=== PATIENT | female | born 1995 | race Caucasian/White ===

== ENCOUNTER 2017-09-09 23:11 | Emergency (ER) | payer MEDICAID ==
--- NOTE | 2017-09-10 00:35 | ER Document Report ---
ED General - General Chief Complaint: Knee Pain Stated Complaint: LEFT KNEE PAIN Time Seen by Provider: 09/10/17 00:02 Notes: Patient is a 3-year-old female presents with complaint of left knee pain. She has a history of patellofemoral syndrome of the knee. She says she is 2 days ago she fell and banged her knee against something. She denies bruising or swelling some pain in her knee. No pain or ankle foot. Normal distal sensation. She denies any other injuries. No other complaints at this time. She does have a knee brace that she has been wearing. She is able to ambulate but says she has some pain in doing so. TRAVEL OUTSIDE OF THE [place] IN LAST 30 DAYS: No - Related Data Allergies/Adverse Reactions: No Known Allergies Allergy (Unverified 09/09/17 23:26) Past Medical History - Social History Smoking Status: Never Smoker Frequency of alcohol use: None Drug Abuse: None Family History: Reviewed & Not Pertinent Patient has suicidal ideation: No Patient has homicidal ideation: No Renal/ Medical History: Denies: Hx Peritoneal Dialysis Surgical Hx: Negative Review of Systems - Review of Systems Notes: My Normal Review Basic REVIEW OF SYSTEMS: CONSTITUTIONAL : Denies fever, chills, or sweats. Denies recent illness. MUSCULOSKELETAL: Left knee pain SKIN: Denies rash or skin lesions. NEUROLOGICAL: Denies sensory or motor loss. ALL OTHER SYSTEMS REVIEWED AND NEGATIVE. Physical Exam - Vital signs Vitals: Temp Pulse Resp BP Pulse Ox 98.1 F 81 18 130/57 H 97 09/09/17 23:21 09/09/17 23:21 09/09/17 23:21 09/09/17 23:21 09/09/17 23:21 - Notes Notes: General Appearance: Well nourished, alert, cooperative, no acute distress, mild obvious discomfort. Vitals: reviewed, See vital signs table. Extremities: strength 5/5 in all extremities, good pulses in all extremities, patient is a small amount swelling on the left knee. Spinal bruising. Patient is able to keep the left leg in full extension raise it off the bed without difficulty. No crepitance to palpation. Patient has some pain to palpation just inferior to the patella itself. This pain is mild. Swelling is mostly actually in the superior medial aspect of the knee. Swelling is mild to moderate. The remainder of the extremity is nontender. She has full motor function of the lower extremity., no edema. Skin: warm, dry, appropriate color, no rash Neuro: speech clear, oriented x 3, normal affect, responds appropriately to questions. Sensation intact. Course - Re-evaluation Re-evalutation: 09/10/17 02:10 X-ray was negative for fractures. At this time we will give her crutches have her continue with a knee brace. I encouraged her to use crutches for the next 3 -4 days. I encourage her to follow-up with her doctor on Monday. If she does not have a doctor follow-up with and she still having pain and I have given her the number to the orthopedist. I encouraged her return to ER if she has worsening swelling or if she feels the knee is worsening. Patient agrees with plan will be discharged home. Dictation of this chart was performed using voice recognition software; therefore, there may be some unintended grammatical errors. - Vital Signs Vital signs: Temp Pulse Resp BP Pulse Ox 98.1 F 81 18 130/57 H 97 09/09/17 23:21 09/09/17 23:21 09/09/17 23:21 09/09/17 23:21 09/09/17 23:21 Discharge - Discharge Clinical Impression: Knee pain, left Qualifiers: Chronicity: acute Qualified Code(s): M25.562 - Pain in left knee Condition: Good Disposition: HOME, SELF-CARE Additional Instructions: Please continue to wear your knee splint. Please use crutches for the next 3-4 days to allow time for better healing. If you are still having pain after 5 days than you should follow up with your doctor for reevaluation or the orthopedist. The orthopedist name is Dr. Doran. Referrals: LUZ DORAN MD [ACTIVE STAFF] - 09/15/17
--- NOTE | 2017-09-10 02:16 | RADIOLOGY REPORT (SQ) ---
EXAM DESCRIPTION: KNEE LEFT 4 VIEW COMPLETED DATE/TIME: 09/10/2017 1:26 am REASON FOR STUDY: trauma , impact injury. Pain in inferior/ anterior to the left patella. COMPARISON: None. NUMBER OF VIEWS: Four views. TECHNIQUE: AP, lateral, and both oblique radiographic images acquired of the left knee. LIMITATIONS: None. FINDINGS: MINERALIZATION: Normal. BONES: No acute fracture or dislocation. JOINT: No effusion. SOFT TISSUES: No soft tissue swelling. No radio-opaque foreign body. IMPRESSION: No radiographic evidence of acute injury. TECHNICAL DOCUMENTATION: JOB ID: [id number] [employer]- All Rights Reserved
[2017-09-10 02:23] VITALS: BP 122/68
== END 2017-09-10 02:21 | disposition home or self-care (01) ==
LOC: ER 23:11
DX: M25.562 Pain in left knee (principal); M25.462 Effusion, left knee; W19.XXXA Unspecified fall, initial encounter
CPT/HCPCS: 99283